=== PATIENT | female | born 1965 | race Hispanic/Latino ===

== ENCOUNTER 2021-06-11 10:24 | Emergency (ER) | payer OTHER, SELFPAY ==
--- OUTSIDE RECORDS SUMMARY | 2021-06-11 10:26 | XMS REPORT | Continuity of Care Document ---
:1965 Author Organization [facility] t Address [address] [place] [address] [address]. [address] [place] [address] Care Team Providers Name Role Phone Pob1, [facility] Attending Clinician Unavailable Problems This patient has no known problems. Allergies, Adverse Reactions, Alerts This patient has no known allergies or adverse reactions. Medications This patient has no known medications. Procedures This patient has no known procedures. Encounters Start End Encounter Admission Attending Care Care Encounter Source Date/Time Date/Time Type Type Clinicians Facility Department ID 2020-03-07 2020-03-07 Urgent Pob1, Acute [facility] [id number] 10:36:53 11:35:13 [facility] [id number] Maxie [id number] Ta [id number] nal 0[address] One Results This patient has no known results.
[2021-06-11 12:43] LABS: Absolute Lymphocytes (CBC) 0.7 K/uL (0.7-4.9); Basophils % 0.4 % (0-1.3); Lymphocytes % 12.8 % (15.3-44.8); MPV 8.9 fL (7.6-11.3); RBC Red Blood Cell Count 4.84 M/uL (3.86-4.86)
--- NOTE | 2021-06-11 12:53 | RAD REPORT ---
EXAM DESCRIPTION: Heriberto Single View06/11/2021 12:47 pm CLINICAL HISTORY: Cough COMPARISON: none FINDINGS: The lungs appear clear of acute infiltrate. The heart is normal size IMPRESSION: No acute abnormalities displayed
[2021-06-11 13:01] LABS: ALT/SGPT 72 U/L (12-78); AST/SGOT 49 U/L (15-37); Albumin 3.3 g/dL (3.4-5.0); Alkaline Phosphatase 103 U/L (45-117); BUN Blood Urea Nitrogen 8 mg/dL (7-18); Bicarbonate 27 mmol/L (21-32); Bilirubin Direct 0.1 mg/dL (0-0.2); Bilirubin Total 0.5 mg/dL (0.2-1.0); Ferritin 519.9 ng/mL (8-388); Glucose Level 87 mg/dL (74-106); Lipase 190 U/L (73-393); Potassium 3.2 mmol/L (3.5-5.1); Protein, Total 6.7 g/dL (6.4-8.2); Sodium Level 137 mmol/L (136-145); Troponin (Emerg Dept Use Only) < 0.02 ng/mL (0.0-0.045)
[2021-06-11 13:07] LABS: Protime INR 1.08
--- NOTE | 2021-06-11 13:59 | RAD REPORT ---
EXAM DESCRIPTION: CT - Chest For Pe Angio - 06/11/2021 1:40 pm CLINICAL HISTORY: Chest pain COMPARISON: None. TECHNIQUE: Dynamically enhanced axial 3 mm thick images of the chest were obtained during administra tion of <100> mL Isovue 370 IV contrast. Coronal and oblique reconstruction images were generated and reviewed. Exam utilizes a protocol for optimal evaluation of pulmonary arterial tree. Maximum intensity projections 3D imaging was utilized All CT scans are performed using dose optimization technique as appropriate and may include automated exposure control or mA/KV adjustment according to patient size. FINDINGS: A pulmonary embolus is not seen. A thoracic aortic aneurysm is not noted. A pleural effusion is not seen. A pericardial effusion is not seen. Mild bilateral ground-glass opacities within the lungs. Fatty liver IMPRESSION: Negative for a pulmonary embolism. Mild bilateral ground-glass opacities within the lungs indicative of a mild alveolitis
[2021-06-11 14:19] LABS: Urine Blood Negative (Negative); Urine Glucose Negative (Negative); Urine Protein Negative (Negative)
[2021-06-11 14:46] LABS: Urine Bacteria 20-50 /HPF (<20); Urine RBC NONE SEEN /HPF (NONE SEEN)
[2021-06-11] MEDS ORDERED: dexAMETHasone 10 MG/ML VIAL ONE (15:16)
--- NOTE | 2021-06-11 15:19 | EDPHYS ---
Physician Documentation [facility] Name: Samia Jarquin Age: 56 yrs Sex: Female : 1965 Arrival Date: 06/11/2021 Time: 10:27 Bed 5 Private MD: ED Physician Josh Horan HPI: 06/11 13:09 This 56 yrs old Female presents to ER via Ambulatory with complaints of kdr COVID+, Chest Pain. 13:10 The patient states that she was diagnosed with Covid last Thursday. She had been ill kdr for about 3 to 4 days. Since then she has been progressively feeling worse. She has no focal signs or symptoms but is otherwise in her usual state of health. She has had subjective fever, chest pain and general malaise. She is not taking any Tylenol or Motrin for the pain.. Severity of symptoms: At their worst the symptoms were moderate just prior to arrival, in the emergency department the symptoms are unchanged. The patient has not experienced similar symptoms in the past. The patient has been recently seen by a physician: Patient was diagnosed with Covid at urgent care last Thursday.. 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 - Social history:: Smoking status: Patient denies any tobacco usage or history of. ROS: 13:10 Constitutional: Negative for objective fever, chills, and weight loss, the patient has kdr had subjective fever. Eyes: Negative for injury, pain, redness, and discharge, ENT: Negative for injury, pain, and discharge, Neck: Negative for injury, pain, and swelling, Cardiovascular: Negative for chest pain, palpitations, and edema, Abdomen/GI: Negative for abdominal pain, nausea, vomiting, diarrhea, and constipation, Back: Negative for injury and pain, : Negative for injury, bleeding, discharge, and swelling, MS/Extremity: Negative for injury and deformity, Skin: Negative for injury, rash, and discoloration, Neuro: Negative for headache, weakness, numbness, tingling, and seizure activity. Psych: Negative for depression, anxiety, suicide ideation, homicidal ideation, and hallucinations, Allergy/Immunology: Negative for hives, rash, and allergies, Endocrine: Negative for neck swelling, polydipsia, polyuria, polyphagia, and marked weight changes, Hematologic/Lymphatic: Negative for swollen nodes, abnormal bleeding, and unusual bruising. 13:10 Respiratory: Positive for cough, with no reported sputum, dyspnea on exertion, shortness of breath, on exertion. Exam: 13:10 Constitutional: This is a well developed, well nourished patient who is awake, alert, kdr and in no acute distress. Head/Face: Normocephalic, atraumatic. Eyes: Pupils equal round and reactive to light, extra-ocular motions intact. Lids and lashes normal. Conjunctiva and sclera are non-icteric and not injected. Cornea within normal limits. Periorbital areas with no swelling, redness, or edema. Neck: Trachea midline, no thyromegaly or masses palpated, and no cervical lymphadenopathy. Supple, full range of motion without nuchal rigidity, or vertebral point tenderness. No Meningismus. Chest/axilla: Normal chest wall appearance and motion. Nontender with no deformity. No lesions are appreciated. Cardiovascular: Regular rate and rhythm with a normal S1 and S2. No gallops, murmurs, or rubs. Normal PMI, no JVD. No pulse deficits. Respiratory: Lungs have equal breath sounds bilaterally, clear to auscultation and percussion. No rales, rhonchi or wheezes noted. No increased work of breathing, no retractions or nasal flaring. Abdomen/GI: Soft, non-tender, with normal bowel sounds. No distension or tympany. No guarding or rebound. No evidence of tenderness throughout. Back: No spinal tenderness. No costovertebral tenderness. Full range of motion. Skin: Warm, dry with normal turgor. Normal color with no rashes, no lesions, and no evidence of cellulitis. MS/ Extremity: Pulses equal, no cyanosis. Neurovascular intact. Full, normal range of motion. Neuro: Awake and alert, GCS 15, oriented to person, place, time, and situation. Cranial nerves II-XII grossly intact. Motor strength 5/5 in all extremities. Sensory grossly intact. Cerebellar exam normal. Normal gait. Psych: Awake, alert, with orientation to person, place and time. Behavior, mood, and affect are within normal limits. Vital Signs: 10:45 BP 123 / 90; Pulse 108; Resp 24; Temp 98.1(TE); Pulse Ox 98% ; Weight 108.86 kg; Height ss 5 ft. 5 in. (165.10 cm); Pain 8/10; 12:28 BP 123 / 79; Pulse 101; Resp 17; Pulse Ox 99% on R/A; hb 13:17 BP 110 / 75; Pulse 105; Resp 19; Pulse Ox 95% ; jl7 14:14 BP 112 / 72; Pulse 102; Resp 16; Pulse Ox 100% on R/A; dh3 15:20 BP 103 / 77; Pulse 107; Resp 15; Pulse Ox 98% ; jl7 10:45 Body Mass Index 39.94 (108.86 kg, 165.10 cm) ss MDM: 13:10 Data reviewed: vital signs, nurses notes, lab test result(s), radiologic studies. kdr Counseling: I had a detailed discussion with the patient and/or guardian regarding: the historical points, exam findings, and any diagnostic results supporting the discharge/admit diagnosis, lab results, radiology results, the need for outpatient follow up. 15:18 Patient medically screened. kdr 06/11 12:13 Order name: Flu kdr 06/11 12:13 Order name: Strep kdr 06/11 12:13 Order name: BMP kdr 06/11 12:13 Order name: Blood Culture Adult (2) kdr 06/11 12:13 Order name: C-Reactive Protein; Complete Time: 13:21 kdr 06/11 12:13 Order name: CBC with Diff; Complete Time: 13:21 kdr 06/11 12:13 Order name: D-Dimer; Complete Time: 13:21 kdr 06/11 12:13 Order name: Ferritin; Complete Time: 13:21 kdr 06/11 12:13 Order name: LFT's; Complete Time: 13:21 kdr 06/11 12:13 Order name: Lactate; Complete Time: 13:21 kdr 06/11 12:13 Order name: Lipase; Complete Time: 13:21 kdr 06/11 12:13 Order name: PT-INR; Complete Time: 13:21 kdr 06/11 12:13 Order name: Procalcitonin; Complete Time: 14:05 kdr 06/11 12:13 Order name: Ptt, Activated; Complete Time: 13:21 [facility] 06/11 12:13 Order name: Droplet/Contact Precautions; Complete Time: 12: [facility] 06/11 12:13 Order name: Labs collected and sent; Complete Time: 12: [facility] 06/11 12:13 Order name: Troponin (emerg Dept Use Only); Complete Time: 13:21 [facility] 06/11 12:13 Order name: Urine Microscopic Only [facility] 06/11 12:13 Order name: CXR XRAY; Complete Time: 13:21 [facility] 06/11 12:13 Order name: EKG; Complete Time: 12:14 [facility] 06/11 12:13 Order name: Influenza Screen (A ; Complete Time: 13:21 [facility] 06/11 12:13 Order name: Group A Streptococcus Rapid Sc; Complete Time: 13:21 [facility] 06/11 12:13 Order name: Basic Metabolic Panel; Complete Time: 13:21 [facility] 06/11 12:13 Order name: Blood Culture [facility] 06/11 13:02 Order name: Throat Culture [facility] 06/11 13:23 Order name: CT Chest For PE Angio; Complete Time: 14:05 [facility] 06/11 14:19 Order name: Urine Dipstick-Ancillary; Complete Time: 14: [facility] 06/11 14:48 Order name: Urine Culture [facility] 06/11 12:13 Order name: O2 Per Protocol; Complete Time: 12: [facility] 06/11 12:13 Order name: Cardiac monitoring; Complete Time: 12:28 [facility] 06/11 12:13 Order name: EKG - Nurse/Tech; Complete Time: 12: [facility] 06/11 12:13 Order name: IV Start; Complete Time: 12: [facility] 06/11 12:13 Order name: O2 Sat Monitoring; Complete Time: 12:28 [facility] 06/11 12:13 Order name: Urine Dipstick-Ancillary (obtain specimen); Complete Time: 14:19 [facility] Administered Medications: 14:58 Drug: Decadron - Dexamethasone 10 mg Route: IVP; Site: right antecubital; 7 15:40 Follow up: Response: No adverse reaction jl7 15:40 Drug: Ivermectin 12 mg Route: PO; jl7 15:41 Follow up: Response: Medication administered at discharge. jl7 Disposition Summary: 06/11/21 15:18 Discharge Ordered Location: Home kdr Problem: an ongoing problem kdr Symptoms: have improved kdr Condition: Stable kdr Diagnosis - SARS-associated coronavirus as the cause of diseases classified elsewhere kdr - Shortness of breath kdr - Chest pain, unspecified kdr Followup: kdr - With: Private Physician - When: 2 - 3 days - Reason: If symptoms return, Further diagnostic work-up, Recheck today's complaints, Continuance of care, Re-evaluation by your physician Discharge Instructions: - Discharge Summary Sheet kdr - Shortness of Breath, Adult, [id number] kdr - Nonspecific Chest Pain, Adult, [id number] kdr - COVID-19 kdr Forms: - Medication Reconciliation Form kdr - Thank You Letter kdr Signatures: Dispatcher [employer] Josh Escobedo MD MD kdr Smirch, Shelby, RN RN ss Grey Collins RN RN jl7
--- NOTE | 2021-06-11 15:19 | ER ---
Nurse's Notes [facility] Name: Samia Jarquin Age: 56 yrs Sex: Female : 1965 Arrival Date: 06/11/2021 Time: 10:27 Bed 5 Private MD: Diagnosis: SARS-associated coronavirus as the cause of diseases classified elsewhere;Shortness of breath;Chest pain, unspecified Presentation: 06/11 10:45 Chief complaint: Patient states: Tested positive for COVID 3 days ago. Pt reports that ss this morning she woke up with chest pressure, dizziness and heat waves. Coronavirus screen: Client presents with at least one sign or symptom that may indicate coronavirus-19. Standard/surgical mask placed on the client. Provider contacted for isolation considerations. Ebola Screen: Patient denies exposure to infectious person. Patient denies travel to an Ebola-affected area in the 21 days before illness onset. Initial Sepsis Screen: Does the patient meet any 2 criteria? No. Patient's initial sepsis screen is negative. Does the patient have a suspected source of infection? No. Patient's initial sepsis screen is negative. Risk Assessment: Do you want to hurt yourself or someone else? Patient reports no desire to harm self or others. Onset of symptoms was June 11, 2021. 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 - Social history:: Smoking status: Patient denies any tobacco usage or history of. Screenin:33 Abuse screen: Denies threats or abuse. Denies injuries from another. Nutritional jl7 screening: No deficits noted. Tuberculosis screening: No symptoms or risk factors identified. 11:56 Fall Risk hb Assessment: 11:33 General: Appears in no apparent distress. uncomfortable, Behavior is cooperative, jl7 anxious. Pain: Complains of pain in mid-sternal area Pain does not radiate. Pain currently is 8 out of 10 on a pain scale. Quality of pain is described as pressure, Pain began This morning Is continuous. Neuro: Level of Consciousness is awake, alert, obeys commands, Oriented to person, place, time, situation. Cardiovascular: Patient's skin is warm and dry. Rhythm is regular. Respiratory: Reports shortness of breath Airway is patent Respiratory effort is even, unlabored, Respiratory pattern is regular, symmetrical. GI: Abdomen is non-distended, Reports diarrhea. Derm: Skin is pink, warm \T\ dry. 12:28 Reassessment: Patient appears in no apparent distress at this time. Patient and/or hb family updated on plan of care and expected duration. Pain level reassessed. Patient is alert, oriented x 3, equal unlabored respirations, skin warm/dry/pink. 13:47 Reassessment: Patient appears in no apparent distress at this time. Patient and/or hb family updated on plan of care and expected duration. Pain level reassessed. Patient is alert, oriented x 3, equal unlabored respirations, skin warm/dry/pink. 14:30 Reassessment: Patient appears in no apparent distress at this time. No changes from 7 previously documented assessment. Patient and/or family updated on plan of care and expected duration. Pain level reassessed. Patient is alert, oriented x 3, equal unlabored respirations, skin warm/dry/pink. 15:20 Reassessment: Pt will be discharged once medication is received from pharmacy. 7 Vital Signs: 10:45 BP 123 / 90; Pulse 108; Resp 24; Temp 98.1(TE); Pulse Ox 98% ; Weight 108.86 kg; Height ss 5 ft. 5 in. (165.10 cm); Pain 8/10; 12:28 BP 123 / 79; Pulse 101; Resp 17; Pulse Ox 99% on R/A; hb 13:17 BP 110 / 75; Pulse 105; Resp 19; Pulse Ox 95% ; jl7 14:14 BP 112 / 72; Pulse 102; Resp 16; Pulse Ox 100% on R/A; dh3 15:20 BP 103 / 77; Pulse 107; Resp 15; Pulse Ox 98% ; jl7 10:45 Body Mass Index 39.94 (108.86 kg, 165.10 cm) ED Course: 10:27 Patient arrived in ED. mr 10:27 Josh Horan MD is Attending Physician. kdr 10:48 Triage completed. ss 10:48 Arm band placed on right wrist. ss 10:53 Grey Collins, RN is Primary Nurse. jl7 11:33 Patient has correct armband on for positive identification. Placed in gown. Bed in low jl7 position. Call light in reach. Side rails up X 1. athletic monitor on. Pulse ox on. NIBP on. 11:33 EKG done, by ED staff, reviewed by Josh Horan MD. Patient maintains SpO2 saturation jl7 greater than 95% on room air. 12:25 Initial lab(s) drawn, by nd, sent to lab. First set of blood cultures drawn by me. 3 Inserted saline lock: 20 gauge in right antecubital area, using aseptic technique. Blood collected. 12:28 Second set of blood cultures drawn by nd. dh3 12:47 CXR XRAY In Process Unspecified. EDMS 13:40 CT Chest For PE Angio In Process Unspecified. EDMS 14:19 Urine collected: clean catch specimen, clear. 3 15:41 No provider procedures requiring assistance completed. IV discontinued, intact, jl7 bleeding controlled, No redness/swelling at site. Pressure dressing applied. Administered Medications: 14:58 Drug: Decadron - Dexamethasone 10 mg Route: IVP; Site: right antecubital; jl7 15:40 Follow up: Response: No adverse reaction jl7 15:40 Drug: Ivermectin 12 mg Route: PO; jl7 15:41 Follow up: Response: Medication administered at discharge. jl7 Outcome: 15:18 Discharge ordered by . kdr 15:41 Discharged to home ambulatory. jl7 15:41 Condition: stable 15:41 Discharge instructions given to patient, Instructed on discharge instructions, follow up and referral plans. medication usage, Demonstrated understanding of instructions, follow-up care, medications, Prescriptions given X 1. 15:41 Patient left the ED. jl7 Signatures: Dispatcher [employer] EDMS Josh Horan MD MD kdr Rivera, Genie ZepedaVerónica, RN Mary Herrera, CONRAD MARTINES Grey Collins, CONRAD MARTINES jl7 Laura Machado formerly [facility]
[2021-06-11] MEDS ORDERED: IVERMECTIN 3 MG TABLET PO ONE (16:00)
[2021-06-11 16:08] VITALS: TEMP 98.1
[2021-06-11 16:18] VITALS: BP 103/77; O2SAT 98
--- NOTE | 2021-06-11 16:50 | P.CNS ---
Date of Consult: 06/11/21 Reason for Consult: ER Evaluation Requesting Physician: Josh Horan Primary Care Provider: none Chief Complaint: SOB History of Present Illness: 56-year-old female without any major medical problems presented to the emergency room with shortness of breath. Patient was tested positive recently for COVID-19. On Thursday she had fever. She had some mild nausea, vomiting. She reported a boyfriend had similar symptoms and tested positive for Covid. She came to the ER for further evaluation. In the ER patient was evaluated. CT scan revealed no pulmonary embolism. Bilateral changes noted on CT scan indicative of Covid infection. Ferritin 519, CRP thirty-six. D-dimer 647. CBC unremarkable. BMP unremarkable. I was asked to evaluate patient in the ER for possible admission or discharge to home. Home medications list reviewed: No - Past Medical/Surgical History Past Medical History: Patient denies medical history -: Partial hysterectomy Psychosocial/ Personal History: Patient has a significant other. - Family History Father Family History: Reviewed- Non-Contributory - Social History Smoking Status: Never smoker Alcohol use: No CD- Drugs: No Caffeine use: Yes Place of Residence: Home Physical Examination Temp Pulse Resp BP Pulse Ox 98.1 F 107 H 15 103/77 06/11/21 10:45 06/11/21 15:20 06/11/21 15:20 06/11/21 15:20 Laboratory Data (last 24 hrs) 06/11/21 12:25: PT 12.4, INR 1.08, APTT 27.5 06/11/21 12:25: WBC 5.20, Hgb 14.5, Hct 43.0, Plt Count 127 L 06/11/21 12:25: Sodium 137, Potassium 3.2 L, BUN 8, Creatinine 0.76, Glucose 87, Total Bilirubin 0.5, AST 49 H, ALT 72, Alkaline Phosphatase 103, Lipase 190 Physician Review Additional Text: CT Scan: FINDINGS: A pulmonary embolus is not seen. A thoracic aortic aneurysm is not noted. A pleural effusion is not seen. A pericardial effusion is not seen. Mild bilateral ground-glass opacities within the lungs. Fatty liver IMPRESSION: Negative for a pulmonary embolism. Mild bilateral ground-glass opacities within the lungs indicative of a mild alveolitis Physical Exam: GENERAL: The patient is a well-developed, well-nourished, in no apparent distress. Alert and oriented x3. VITAL SIGNS: Reviewed HEENT: Head is normocephalic and atraumatic. Extraocular muscles are intact. Pupils are equal, round, and reactive to light and accommodation. Nares appeared normal. Mouth is well hydrated and without lesions. Mucous membranes are moist. NECK: Supple. No carotid bruits. No lymphadenopathy or thyromegaly. LUNGS: Clear to auscultation. No crackles or wheezes are heard. No desaturations noted. HEART: Regular rate and rhythm, no appreciable gallops, rubs, murmurs or extra heart sounds ABDOMEN: Soft, nontender, and nondistended. Positive bowel sounds. No hepatosplenomegaly was noted. EXTREMITIES: Without any cyanosis, clubbing, rash, lesions or peripheral edema. NEUROLOGIC: The patient is oriented to person, place and time. Strength and sensation are grossly intact. Face is symmetric. SKIN: Normal color, turgor and temperature. No ulcerations or rashes noted. Impression: Dyspnea secondary to COVID-19 bilateral pneumonia Plan: Patient was evaluated in the emergency room. Room air saturations within normal range even with exertion. Patient was able to ambulate without difficulty. No significant distress noted. Patient desires to go home. Patient will be discharged home. Patient given IV Decadron and ivermectin in the emergency room. Recommend to continue prednisone 20 mg 1 pill twice daily for 7 days and 1 pill once daily for 7 days. We'll also recommend to continue aspirin 81 mg daily, zinc 220 mg daily, thiamine 100 mg daily, vitamin C 500 mg three times a day, and vitamin D 2000 units daily. Recommend to monitor her oxygen saturations with pulse oximeter. Recommend to maintain oxygen above 93%. If she has continued increasing shortness of breath or significant desaturations she is to return to the hospital. She is aware of this. Patient plans to follow-up with pulmonology as an outpatient to monitor her symptoms closely. Education on COVID-19 provided including facemask use, handwashing, isolation, proning and incentive spirometer. Plan discussed with ER physician who agrees with plan of care. Time Spent Managing Pts care (In Minutes): 55
--- NOTE | 2021-06-12 10:43 | EKG ---
Test Date: 2021-06-11 Test Time: 11:29:07 Events Assistant: PETAR MEASUREMENT RESULTS: Intervals: Rate: 99 AL: 126 QRSD: 76 QT: 332 QTc: 426 [place]: P: 36 AL: 126 QRS: -9 T: 13 INTERPRETIVE STATEMENTS: Normal sinus rhythm Normal ECG No previous ECG available for comparison Electronically Signed On 06-12-21 10:41:53 CDT by Osvaldo Gerard
== END 2021-06-11 15:41 | disposition home or self-care (01) ==
LOC: ER 10:24
DX: U07.1 COVID-19 (principal); J12.82 Pneumonia due to coronavirus disease 2019; R06.02 Shortness of breath
CPT/HCPCS: 36415; 71045; 71275; 80048; 80076; 81003; 81015; 82728; 83605; 83690; 84145; 84484; 85025; 85379; 85610; 85730; 86140; 87040; 87070; 87081; 87086; 87088; 87804; 93005; 96374; 99285; J1100; Q9967

== ENCOUNTER 2021-06-14 03:08 | Inpatient (IN) | payer SELFPAY ==
--- OUTSIDE RECORDS SUMMARY | 2021-06-14 03:11 | XMS REPORT | Continuity of Care Document ---
:1965 Author Organization [facility] t Address [address] [place] [address] [address]. [address] [place] [address] Care Team Providers Name Role Phone Pob1, [facility] Attending Clinician Unavailable Problems This patient has no known problems. Allergies, Adverse Reactions, Alerts This patient has no known allergies or adverse reactions. Medications This patient has no known medications. Procedures This patient has no known procedures. Encounters Start End Encounter Admission Attending Care Care Encounter Source Date/Time Date/Time Type Type Clinicians Facility Department ID 2020-03-07 2020-03-07 Urgent Pob1, Acute [facility] [id number] 10:36:53 11:35:13 [facility] [id number] [place] [id number] Ta [id number] nal 044 [address] One Results This patient has no known results.
--- NOTE | 2021-06-14 03:51 | ER ---
Nurse's Notes [facility] Name: Samia Jarquin Age: 56 yrs Sex: Female : 1965 Arrival Date: 06/14/2021 Time: 03:11 Bed 25 Private MD: Diagnosis: Acute dyspnea, Hypoxia. Positive Covid 19;Acute dyspnea, Hypoxia. Positive Covid 19. Covid pneumonia Presentation: 06/14 03:27 Chief complaint: Patient states: she was diagnosed with COVID Thursday and started on bb steroids but tonight she started having difficulty breathing and coughing. Coronavirus screen: chills, cough unrelated to allergies, difficulty breathing, Client reports previous positive COVID test result. Ebola Screen: No symptoms or risks identified at this time. Initial Sepsis Screen: Does the patient meet any 2 criteria? RR > 20 per min. HR > 90 bpm. Yes Does the patient have a suspected source of infection? Yes: Productive cough/pneumonia. Risk Assessment: Do you want to hurt yourself or someone else? Patient reports no desire to harm self or others. Onset of symptoms was June 14, 2021. 03:27 Method Of Arrival: Ambulatory bb 03:27 Acuity: HOMAR 3 bb SHIRRER: 03:30 LMP N/A - Hysterectomy bb Historical: - Allergies: 03:30 No Known Allergies; bb - Home Meds: 03:30 None [Active]; bb - PMHx: 03:30 None; bb - PSHx: 03:30 partial hysterectomy; bb - Immunization history:: Adult Immunizations up to date, Client reports having NOT received the Covid vaccine. - Social history:: Smoking status: Patient denies any tobacco usage or history of. Screenin:30 Abuse screen: Denies threats or abuse. Nutritional screening: No deficits noted. jb4 Tuberculosis screening: No symptoms or risk factors identified. Fall Risk None identified. Assessment: 03:30 General: Appears in no apparent distress. uncomfortable, Behavior is calm, cooperative, jb4 appropriate for age. Pain: Denies pain. Neuro: Level of Consciousness is awake, alert, obeys commands, Oriented to person, place, time, situation. Cardiovascular: Patient's skin is warm and dry. Respiratory: Airway is patent Respiratory effort is even, labored, Respiratory pattern is regular, tachypnea Breath sounds are clear bilaterally. GI: No signs and/or symptoms were reported involving the gastrointestinal system. : EENT: No signs and/or symptoms were reported regarding the EENT system. Derm: Skin is intact, Skin is pink, warm \T\ dry. Musculoskeletal: Circulation, motion, and sensation intact. Range of motion: intact in all extremities. 03:55 Reassessment: PT DeSat to 88% while on 2L NC upon exertion. Provider notified. jb4 04:47 Reassessment: Patient appears in no apparent distress at this time. Patient and/or jb4 family updated on plan of care and expected duration. Pain level reassessed. Pt is resting in bed with eyes closed, respirations are even, labored, and tachypneic. No s/s of pain or distress noted. 07:00 Reassessment: RECD REPORT FROM CHAZ MARTINES. 56YO HF P/W +COVID AND HYPOXIA. ADMIT IN bp PROCESS. 07:15 Cardiovascular: Rhythm is sinus rhythm. Respiratory: Airway is patent Respiratory bp effort is even, labored, Respiratory pattern is regular, Breath sounds are clear bilaterally. Vital Signs: 03:27 BP 132 / 79; Pulse 108; Resp 28 S; Temp 100.4(O); Pulse Ox 90% on R/A; Weight 111.13 kg bb (R); Height 5 ft. 5 in. (165.10 cm) (R); Pain 0/10; 04:15 BP 119 / 70; Pulse 97; Resp 24; Pulse Ox 90% on 2 lpm NC; jb4 07:00 BP 138 / 82; Pulse 83; Resp 25; Pulse Ox 91% on 2 lpm NC; bp 03:27 Body Mass Index 40.77 (111.13 kg, 165.10 cm) bb ED Course: 03:11 Patient arrived in ED. es 03:20 Ruslan Restrepo, CONRAD is Primary Nurse. jb4 03:27 Tyson Whitley MD is Attending Physician. pkl 03:30 Triage completed. bb 03:30 Arm band placed on Patient placed in an exam room, on a stretcher, on oxygen, on pulse bb oximetry. 03:30 Patient has correct armband on for positive identification. Bed in low position. Call jb4 light in reach. Side rails up X 1. Pulse ox on. NIBP on. 03:50 Sundar Starks DO is Hospitalizing Provider. pkl 03:52 XRAY Chest (1 view) In Process Unspecified. EDMS 04:00 Initial lab(s) drawn, by me, sent to lab. Inserted saline lock: 20 gauge in right jb4 antecubital area, using aseptic technique. Blood collected. 05:17 No provider procedures requiring assistance completed. Patient admitted, IV remains in jb4 place. Administered Medications: 04:07 Drug: SOLU-Medrol (methylPrednisoLONE) 125 mg Route: IVP; Site: right antecubital; jb 06:24 Follow up: Response: No adverse reaction jb4 Outcome: 03:51 Decision to Hospitalize by Provider. pkl 05:17 Admitted to ER Hold. Please see [facility] for further documentation. jb 05:17 Condition: stable 05:17 Discharge instructions given to patient, Instructed on the need for admit, Demonstrated understanding of instructions. 06/15 09:47 Patient left the ED. bp Signatures: Dispatcher [employer] EDLA Tyson Whitley MD MD pkl Ambika Blake Brenda, RN RN bb Ruslan Restrepo, CONRAD RN jb4 Hans Childs, CONRAD RN bp
--- NOTE | 2021-06-14 03:52 | EDPHYS ---
Physician Documentation [facility] Name: Samia Jarquin Age: 56 yrs Sex: Female : 1965 Arrival Date: 06/14/2021 Time: 03:11 Bed 25 Private MD: ED Physician Tyson Whitley HPI: 06/14 03:43 This 56 yrs old Female presents to ER via Ambulatory with complaints of pkl Breathing Difficulty. 03:43 The patient has shortness of breath at rest. Onset: The symptoms/episode began/occurred pkl today. Patient was seen here 5 days ago and tested positive for Covid 19. Patient given steroids but felt worse and now having shortness of breath. 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 - Social history:: Smoking status: Patient denies any tobacco usage or history of. ROS: 03:43 Eyes: Negative for injury, pain, redness, and discharge, ENT: Negative for injury, pkl pain, and discharge, Neck: Negative for injury, pain, and swelling, Cardiovascular: Negative for chest pain, palpitations, and edema. 03:43 Respiratory: Positive for cough, shortness of breath, at rest. 03:43 Abdomen/GI: Negative for abdominal pain, nausea, vomiting, and diarrhea. 03:43 Back: Negative for acute changes. 03:43 : Negative for urinary symptoms. 03:43 MS/extremity: Negative for acute changes. 03:43 Skin: Negative for rash. 03:43 Neuro: Negative for altered mental status, loss of consciousness. Exam: 03:43 Head/Face: Normocephalic, atraumatic. Eyes: Pupils equal round and reactive to light, pkl extra-ocular motions intact. Lids and lashes normal. Conjunctiva and sclera are non-icteric and not injected. Cornea within normal limits. Periorbital areas with no swelling, redness, or edema. ENT: Nares patent. No nasal discharge, no septal abnormalities noted. Tympanic membranes are normal and external auditory canals are clear. Oropharynx with no redness, swelling, or masses, exudates, or evidence of obstruction, uvula midline. Mucous membranes moist. Neck: Trachea midline, no thyromegaly or masses palpated, and no cervical lymphadenopathy. Supple, full range of motion without nuchal rigidity, or vertebral point tenderness. No Meningismus. Chest/axilla: Normal chest wall appearance and motion. Nontender with no deformity. No lesions are appreciated. Cardiovascular: Regular rate and rhythm with a normal S1 and S2. No gallops, murmurs, or rubs. Normal PMI, no JVD. No pulse deficits. 03:43 Respiratory: mild respiratory distress is noted, Respirations: labored breathing, that is mild, Breath sounds: rales, that are mild, are scattered. 03:43 Abdomen/GI: Exam negative for acute changes. 03:43 Back: Exam negative for acute changes. 03:43 : Exam negative for acute changes. 03:43 Musculoskeletal/extremity: Exam is negative for acute changes. 03:43 Skin: Exam negative for rash. 03:43 Neuro: Orientation: is normal, Mentation: is normal, Cranial nerves: grossly normal, Motor: is normal. Vital Signs: 03:27 BP 132 / 79; Pulse 108; Resp 28 S; Temp 100.4(O); Pulse Ox 90% on R/A; Weight 111.13 kg bb (R); Height 5 ft. 5 in. (165.10 cm) (R); Pain 0/10; 04:15 BP 119 / 70; Pulse 97; Resp 24; Pulse Ox 90% on 2 lpm NC; jb4 07:00 BP 138 / 82; Pulse 83; Resp 25; Pulse Ox 91% on 2 lpm NC; bp 03:27 Body Mass Index 40.77 (111.13 kg, 165.10 cm) bb MDM: 03:27 Patient medically screened. pkl 03:43 Data reviewed: vital signs, nurses notes, lab test result(s), EKG, radiologic studies, pkl plain films. ED course: Talked to Mark LAUREN ) Admit to Dr. Starks. 06/14 03:40 Order name: CBC with Diff la1 06/14 03:40 Order name: LFT's la1 06/14 03:40 Order name: Magnesium la1 06/14 03:40 Order name: NT PRO-BNP nm06/14 03:40 Order name: PT-INR nm06/14 03:40 Order name: Troponin (emerg Dept Use Only) nm06/14 03:40 Order name: CMP nm06/14 03:40 Order name: CRP nm06/14 03:40 Order name: Ferritin nm06/14 03:40 Order name: DD nm06/14 03:40 Order name: CBC with Automated Diff EDMS 06/14 04:00 Order name: Procalcitonin EDND 06/15 05:08 Order name: CBC with Automated Diff EDMS 06/15 05:32 Order name: Comprehensive Metabolic Panel EDND 06/14 03:40 Order name: XRAY Chest (1 view) nm06/14 03:40 Order name: EKG; Complete Time: 03:41 nm06/14 03:40 Order name: Cardiac monitoring; Complete Time: 04:05 nm06/14 03:40 Order name: EKG - Nurse/Tech; Complete Time: 04:05 nm06/14 03:40 Order name: IV Saline Lock; Complete Time: 04:06 nm06/14 03:40 Order name: Labs collected and sent; Complete Time: 04:06 nm06/14 03:40 Order name: O2 Per Protocol; Complete Time: 04:06 nm06/14 03:40 Order name: O2 Sat Monitoring; Complete Time: 04:06 nm06/15 05:32 Order name: Lipid Profile EDND 06/15 05:32 Order name: C-Reactive Protein EDND 06/15 05:32 Order name: T4 Free EDND 06/15 05:32 Order name: Magnesium EDND 06/15 05:32 Order name: Thyroid Stimulating Hormone EDND 06/15 05:32 Order name: Ferritin EDND 06/15 06:55 Order name: Hemoglobin A1c EDND Administered Medications: 04:07 Drug: SOLU-Medrol (methylPrednisoLONE) 125 mg Route: IVP; Site: right antecubital; jb4 06:24 Follow up: Response: No adverse reaction jb4 Disposition Summary: 06/14/21 03:51 Hospitalization Ordered Hospitalization Status: Inpatient Admission pkl Provider: Sundar Starks pkl Condition: Stable pkl Problem: new pkl Symptoms: are unchanged pkl Bed/Room Type: Standard pkl Location: Intensive Care Unit(06/15/21 07:26) eb Room Assignment: 8-(06/15/21 07:26) eb Diagnosis - Acute dyspnea, Hypoxia. Positive Covid 19 pkl - Acute dyspnea, Hypoxia. Positive Covid 19. Covid pneumonia pkl Forms: - Medication Reconciliation Form pkl - SBAR form pkl Signatures: Dispatcher [employer] EDTyson Mayorga MD MD pkl Kalyn Moses, RN RN Mark Da Silva, PHOTO MASK PROCESSOR-C PHOTO MASK PROCESSOR-Cla1 Ruslan eRstrepo RN RN jb4 Brandie Hunt Bridget RN RN bs2 Corrections: (The following items were deleted from the chart) 07:40 03:51 Telemetry/MedSurg (Inpatient) pkl bs2 07:40 03:51 pkl bs2 06/15 07:26 06/14 07:40 [facility] ER HOLD bs2 eb 06/15 07:06/14 07:40 ERHOLD- bs2 eb
[2021-06-14] MEDS ORDERED: METHYLPREDNISOLONE 125 MG INJ ONE ×2 (04:07→17:03)
--- NOTE | 2021-06-14 04:15 | P.HP ---
Certification for Inpatient Patient admitted to: Inpatient With expected LOS: >2 Midnights Patient will require the following post-hospital care: None Practitioner: I am a practitioner with admitting privileges, knowledge of patient current condition, hospital course, and medical plan of care. Services: Services provided to patient in accordance with Admission requirements found in Title 42 Section 412.3 of the Code of Federal Regulations Patient History Date of Service: 06/14/21 Primary Care Provider: None Reason for admission: COVID-19 pneumonia History of Present Illness: 56-year-old otherwise healthy female presents emergency department for shortness of breath and cough. Patient reports testing positive for Covid on 06/08/2021 with progressive shortness of breath. Boyfriend also sick with Covid, currently hospitalized. Upon arrival to the emergency department patient saturating around 88% on room air with tachypnea, dyspnea. Patient was placed on nasal cannula and given IV steroids in the emergency department, ED provider wishes to admit for further evaluation and management. - Past Medical/Surgical History -: None -: Partial hysterectomy Psychosocial/ Personal History: Patient has a significant other. - Social History Smoking Status: Never smoker Alcohol use: No CD- Drugs: No Caffeine use: Yes Place of Residence: Home Review of Systems 10-point ROS is otherwise unremarkable General: Chills, Weakness, Malaise Respiratory: Cough, Shortness of Breath, SOB with Excertion Physical Examination - Physical Exam General: Alert, In no apparent distress, Oriented x3 HEENT: Atraumatic, PERRLA, Mucous membr. moist/pink Neck: Supple, 2+ carotid pulse no bruit, No LAD Respiratory: Normal air movement, Diminished, Other (Tachypnea) Cardiovascular: Regular rate/rhythm, Normal S1 S2 Capillary refill: <2 Seconds Gastrointestinal: Normal bowel sounds, No tenderness Musculoskeletal: No tenderness Integumentary: No rashes Neurological: Normal gait, Normal speech, Normal strength at 5/5 x4 extr, Normal tone, Normal affect Lymphatics: No axilla or inguinal lymphadenopathy Assessment and Plan - Plan Assessment: Acute hypoxic respiratory failure secondary to COVID-19 pneumonia Obesity Plan: Acute hypoxic respiratory failure secondary to COVID-19 pneumonia: Patient nonvaccinated, patient recently seen in the emergency department had CT PE protocol which was negative for pulmonary embolism, chest x-ray worse in comparison today. Currently tolerating 3 to 4 L per nasal cannula well saturating the low 90s with some mild tachypnea noted on exam. We will continue with IV steroids, oral supplements, supplemental oxygen as needed, daily room air saturations, room air saturations for home O2. Pulmonology consulted. If patient does well over the course of the next 24 hours may possibly be discharged home with home oxygen. Obesity: We will on awake counselor on lifestyle changes, risk factor for poor outcome with Covid DVT PPX: Lovenox Code status: Full Discharge Plan: Home Plan to discharge in: 48 Hours - Advance Directives Does patient have a Living Will: No Does patient have a Durable POA for Healthcare: No - Code Status/Comfort Care Code Status Assessed: Yes (Full code) Critical Care: No Time Spent Managing Pts Care (In Minutes): 55
[2021-06-14 04:20] LABS: Absolute Lymphocytes (CBC) 0.7 K/uL (0.7-4.9); Basophils % 0.2 % (0-1.3); Hematocrit 40.7 % (36.0-45.0); Lymphocytes % 8.3 % (15.3-44.8); MPV 8.5 fL (7.6-11.3); RBC Red Blood Cell Count 4.64 M/uL (3.86-4.86)
[2021-06-14 04:22] LABS: Protime INR 1.03
[2021-06-14] MEDS ORDERED: MELATONIN 5 MG TABLET PO PRN (05:07)
[2021-06-14] MEDS ORDERED: ONDANSETRON 4 MG/2 ML VIAL IV PRN (05:07)
[2021-06-14] MEDS ORDERED: ACETAMINOPHEN 500 MG TAB PO PRN (05:07)
--- NOTE | 2021-06-14 06:00 | P.PN ---
Subjective Date of Service: 06/14/21 Primary Care Provider: None Chief Complaint: COVID-19 pneumonia Subjective: Improving, Other (Failed outpatient treatment of COVID. No distress noted. on 2 L/min) Physical Examination - Vital Signs Temperature: 100.2 F - Studies Laboratory Data (last 24 hrs) 06/14/21 04:03: PT 11.8, INR 1.03 06/14/21 04:03: WBC 9.00 D, Hgb 14.2, Hct 40.7, Plt Count 153 D Assessment & Plan Discharge Plan: Home Plan to discharge in: 24 Hours Physician Review Additional Text: Physical exam: General: Alert, In no apparent distress, Oriented x3 HEENT: Atraumatic, PERRLA, Mucous membr. moist/pink Neck: Supple, 2+ carotid pulse no bruit, No LAD Respiratory: Normal air movement. No distress. currently on 2 l/m Cardiovascular: Regular rate/rhythm, Normal S1 S2 Capillary refill: <2 Seconds Gastrointestinal: Normal bowel sounds, No tenderness Musculoskeletal: No tenderness Integumentary: No rashes Neurological: Normal gait, Normal speech, Normal strength at 5/5 x4 extr, Normal tone, Normal affect Lymphatics: No axilla or inguinal lymphadenopathy Impression: Acute hypoxic respiratory failure secondary to COVID-19 pneumonia, unvaccinated, failed outpatient therapy Obesity, BMI 40 Plan: Acute hypoxic respiratory failure secondary to COVID-19 pneumonia, unvaccinated, failed outpatient therapy: Patient nonvaccinated, patient recently seen in the emergency department had CT PE protocol which was negative for pulmonary embolism, chest x-ray worse in comparison today. Currently on 2 l/min. No distress noted. Will continue with IV steroid, ivermectin, and supplementation. Encourage proning, incentive spirometer. Will need home oxygen. If stable in the next 24 hours then likely DC home tomorrow. Obesity, BMI 40: We will professor of counseling on lifestyle changes, risk factor for poor outcome with Covid DVT PPX: Lovenox Code status: Full Discharge Plan: Home Time Spent Managing Pts Care (In Minutes): 55
[2021-06-14] MEDS ORDERED: ACETAMINOPHEN 500 MG TAB ONE (06:09)
[2021-06-14 06:38] LABS: ALT/SGPT 53 U/L (12-78); AST/SGOT 32 U/L (15-37); Albumin 3.1 g/dL (3.4-5.0); Alkaline Phosphatase 86 U/L (45-117); BUN Blood Urea Nitrogen 9 mg/dL (7-18); Bicarbonate 26 mmol/L (21-32); Bilirubin Direct 0.2 mg/dL (0-0.2); Bilirubin Total 0.5 mg/dL (0.2-1.0); Glucose Level 177 mg/dL (74-106); Magnesium 1.9 mg/dL (1.8-2.4); NT PRO-BNP 175 pg/mL (<125); Potassium 3.4 mmol/L (3.5-5.1); Protein, Total 6.6 g/dL (6.4-8.2); Sodium Level 139 mmol/L (136-145); Troponin (Emerg Dept Use Only) < 0.02 ng/mL (0.0-0.045)
[2021-06-14 06:53] LABS: Ferritin 523.6 ng/mL (8-388)
[2021-06-14] MEDS: KCL 20 MEQ/100 mL IVPB 20 MEQ/100 ML BAG IV SCH ×2 (08:00→10:00)
--- NOTE | 2021-06-14 08:12 | RAD REPORT ---
EXAM DESCRIPTION: RAD - Chest Single View - 06/14/2021 3:52 am CLINICAL HISTORY: COUGH COMPARISON: June 11 TECHNIQUE: AP portable chest image was obtained 06/14/2021 3:52 am . FINDINGS: Exam is substantially limited due to large body habitus, portable lordotic position examin ation and under penetrated technique. The very low lung volumes accentuate interstitial markings easily masking edema or infiltrate. Patchy airspace disease could also be potentially masked. Heart and vasculature are normal. No measurable pleural effusion and no pneumothorax. No acute bony abnormality seen. No acute aortic findings suspected. IMPRESSION: Very limited portable study showing interstitial and alveolar opacities. The lung parenc hymal findings may all simply represent atelectasis from low lung volumes and under penetrated film t echnique. Interstitial edema or infiltrate are easily masked and mild alveolar edema or infiltrate could be mas ked.
[2021-06-14] MEDS: THIAMINE HCL 100 MG TABLET PO SCH (09:00)
[2021-06-14] MEDS: ASPIRIN EC 81 MG TAB PO SCH (09:00)
[2021-06-14] MEDS: ASCORBIC ACID 500 MG TABLET PO SCH ×4 (09:00→21:00)
[2021-06-14] MEDS ORDERED: ENOXAPARIN 40 MG/0.4 ML SQ SCH (09:00)
[2021-06-14] MEDS: METHYLPREDNISOLONE 40 MG INJ IV SCH ×3 (09:00→21:00)
[2021-06-14] MEDS: ZINC SULFATE 220 MG CAP PO SCH (09:00)
[2021-06-14] MEDS: VITAMIN D 1000 UNIT TAB PO SCH (09:00)
[2021-06-14] MEDS: IVERMECTIN 3 MG TABLET PO SCH (09:00)
[2021-06-14] MEDS ORDERED: THIAMINE HCL 100 MG TABLET ONE (10:34)
[2021-06-14] MEDS ORDERED: ASPIRIN EC 81 MG TAB PO ONE (10:34)
[2021-06-14] MEDS ORDERED: ZINC SULFATE 220 MG CAP ONE (10:34)
[2021-06-14] MEDS ORDERED: VITAMIN D 1000 UNIT TAB ONE (10:35)
[2021-06-14] MEDS ORDERED: ASCORBIC ACID 500 MG TABLET ONE ×3 (10:35→21:34)
[2021-06-14] MEDS ORDERED: METHYLPREDNISOLONE 40 MG INJ ONE ×2 (10:35→21:34)
[2021-06-14] MEDS ORDERED: POTASSIUM CL SA 10 MEQ TAB PO ONE (10:35)
[2021-06-14] MEDS ORDERED: ENOXAPARIN 40 MG/0.4 ML SQ ONE (10:36)
--- NOTE | 2021-06-14 10:50 | P.CNS ---
Date of Consult: 06/14/21 Reason for Consult: RENATO talavera Primary Care Provider: None Chief Complaint: COVID-19 pneumonia History of Present Illness: Age 56 AW COVID penumonia, Pos 06/08/ Stable Allergies No Known Allergies Allergy (Unverified 06/14/21 05:07) Home Medications: predniSONE [Prednisone] 20 mg PO BID 06/14/21 - Past Medical/Surgical History -: None -: Partial hysterectomy Psychosocial/ Personal History: Patient has a significant other. - Social History Smoking Status: Never smoker Alcohol use: No CD- Drugs: No Caffeine use: No Place of Residence: Home Review of Systems General: Weakness Respiratory: Shortness of Breath Physical Examination Temp Pulse Resp BP Pulse Ox 100.2 F 06/14/21 06:45 Laboratory Data (last 24 hrs) 06/14/21 04:03: PT 11.8, INR 1.03 06/14/21 04:03: Sodium 139, Potassium 3.4 L, BUN 9, Creatinine 0.74, Glucose 177 H, Magnesium 1.9, Total Bilirubin 0.5, AST 32, ALT 53, Alkaline Phosphatase 86 06/14/21 04:03: WBC 9.00 D, Hgb 14.2, Hct 40.7, Plt Count 153 D - Problems (1) COVID Current Visit: Yes Status: Acute Plan: age 56 AW COVID penumonia/ Labs reviewed/ on 2 l ncan. Does not qualify for barcitinib/ labs reviewed. CXRY OBesity with ILD/ O2 ordered/poss DC home am
[2021-06-14] MEDS: RIVAROXABAN 15 MG TABLET PO SCH (17:00)
[2021-06-15 04:55] LABS: Absolute Lymphocytes (CBC) 0.8 K/uL (0.7-4.9); Basophils % 0.2 % (0-1.3); Hematocrit 39.5 % (36.0-45.0); Lymphocytes % 9.6 % (15.3-44.8); MPV 8.4 fL (7.6-11.3)
[2021-06-15 05:31] LABS: Bilirubin Total 0.4 mg/dL (0.2-1.0); C-Reactive Protein 61.8 mg/L (<3.00); Ferritin 608.1 ng/mL (8-388); Magnesium 2.5 mg/dL (1.8-2.4); Potassium 3.9 mmol/L (3.5-5.1); Protein, Total 6.7 g/dL (6.4-8.2); Thyroid Stimulating Hormone 0.44 uIU/mL (0.360-3.740)
--- NOTE | 2021-06-15 06:04 | P.DS ---
Admission Date: 06/14/21 Discharge Date: 06/15/21 Primary Care Provider: None Disposition: ROUTINE DISCHARGE Discharge Condition: GOOD Reason for Admission: COVID-19 pneumonia Consultations: Pulmonary-Dr. Villasenor Procedures: Medical problem list: Acute hypoxic respiratory failure secondary to COVID-19 pneumonia, unvaccinated, failed outpatient therapy Obesity, BMI 40 Brief History of Present Illness: 56-year-old otherwise healthy female presents emergency department for shortness of breath and cough. Patient reports testing positive for Covid on 06/08/2021 with progressive shortness of breath. Boyfriend also sick with Covid, currently hospitalized. Upon arrival to the emergency department patient saturating around 88% on room air with tachypnea, dyspnea. Patient was placed on nasal cannula and given IV steroids in the emergency department, ED provider wishes to admit for further evaluation and management. Hospital Course: Plan: Acute hypoxic respiratory failure secondary to COVID-19 pneumonia, unvaccinated, failed outpatient therapy: Patient nonvaccinated, patient recently seen in the emergency department had CT PE protocol which was negative for pulmonary embolism, chest x-ray worse in comparison today. Currently on 2 l/min. No distress noted. Will continue with IV steroid, ivermectin, and supplementation. Encourage proning, incentive spirometer. Will need home oxygen. If stable in the next 24 hours then likely DC home tomorrow. Obesity, BMI 40: We will business and financial counsel on lifestyle changes, risk factor for poor outcome with Covid DVT PPX: Lovenox Code status: Full Discharge Plan: Home Time Spent Managing Pts Care (In Minutes): 55 Vital Signs/Physical Exam: Temp Pulse Resp BP Pulse Ox 98.5 F 72 24 H 133/80 91 06/15/21 04:00 06/15/21 04:00 06/15/21 04:00 06/15/21 04:00 06/15/21 04:00 Laboratory Data at Discharge: WBC 8.70 K/uL (4.3-10.9) 06/15/21 04:48 Hgb 13.6 g/dL (12.0-15.0) 06/15/21 04:48 Hct 39.5 % (36.0-45.0) 06/15/21 04:48 Plt Count 143 K/uL (152-406) L 06/15/21 04:48 PT 11.8 SECONDS (9.5-12.5) 06/14/21 04:03 INR 1.03 06/14/21 04:03 Sodium 140 mmol/L (136-145) 06/15/21 04:48 Potassium 3.9 mmol/L (3.5-5.1) 06/15/21 04:48 BUN 15 mg/dL (7-18) 06/15/21 04:48 Creatinine 0.71 mg/dL (0.55-1.3) 06/15/21 04:48 Glucose 215 mg/dL (74-106) H 06/15/21 04:48 Magnesium 2.5 mg/dL (1.8-2.4) H D 06/15/21 04:48 Total Bilirubin 0.4 mg/dL (0.2-1.0) 06/15/21 04:48 AST 24 U/L (15-37) 06/15/21 04:48 ALT 49 U/L (12-78) 06/15/21 04:48 Alkaline Phosphatase 83 U/L (45-117) 06/15/21 04:48 Triglycerides 117 mg/dL (<150) 06/15/21 04:48 Cholesterol 148 mg/dL (<200) 06/15/21 04:48 HDL Cholesterol 45 mg/dL (40-60) 06/15/21 04:48 Cholesterol/HDL Ratio 3.29 06/15/21 04:48 Home Medications: predniSONE [Prednisone] 20 mg PO BID 06/14/21 Followup: NONE,NONE [Primary Care Provider] -
--- NOTE | 2021-06-15 06:21 | P.PN ---
Subjective Date of Service: 06/15/21 Primary Care Provider: None Chief Complaint: COVID-19 pneumonia Subjective: Other (Still with some SOB with exertion with desaturations. She is stable on 3 L/m) Physical Examination - Vital Signs Temperature: 98.5 F Blood Pressure: 133/80 Pulse: 72 Respirations: 24 Pulse Ox (%): 91 - Studies Laboratory Data (last 24 hrs) 06/14/21 04:03: Sodium 139, Potassium 3.4 L, BUN 9, Creatinine 0.74, Glucose 177 H, Magnesium 1.9, Total Bilirubin 0.5, AST 32, ALT 53, Alkaline Phosphatase 86 Assessment & Plan Discharge Plan: Home Plan to discharge in: 48 Hours Physician Review Additional Text: Physical exam: General: Alert, In no apparent distress, Oriented x3 HEENT: Atraumatic, PERRLA, Mucous membr. moist/pink Neck: Supple, 2+ carotid pulse no bruit, No LAD Respiratory: Normal air movement. No distress. currently on 2 l/m Cardiovascular: Regular rate/rhythm, Normal S1 S2 Capillary refill: <2 Seconds Gastrointestinal: Normal bowel sounds, No tenderness Musculoskeletal: No tenderness Integumentary: No rashes Neurological: Normal gait, Normal speech, Normal strength at 5/5 x4 extr, Normal tone, Normal affect Lymphatics: No axilla or inguinal lymphadenopathy Impression: Acute hypoxic respiratory failure secondary to COVID-19 pneumonia, unvaccinated, failed outpatient therapy Obesity, BMI 40 Plan: Acute hypoxic respiratory failure secondary to COVID-19 pneumonia, unvaccinated, failed outpatient therapy: Patient nonvaccinated, patient recently seen in the emergency department had CT PE protocol which was negative for pulmonary embolism. Ferritin and CRP increased. Currently on 3 L/m. Still with some desats with exertion. Will continue with IV steroid, ivermectin, and supplementation. Encourage proning, incentive spirometer. Will discuss with Pulmonary about starting Baricinitib. COntinue to monitor closely. Anticipate home in 48 hours. Obesity, BMI 40: Continue with Lifestyle modifications. DVT PPX: Lovenox Code status: Full Discharge Plan: Home Time Spent Managing Pts Care (In Minutes): 55
[2021-06-15] MEDS ORDERED: BARICITINIB 2 MG TABLET PO SCH (07:00)
[2021-06-15] MEDS ORDERED: POTASSIUM CL SA 10 MEQ TAB PO ONE (09:24)
[2021-06-15] MEDS: ASCORBIC ACID 500 MG TABLET PO SCH ×4 (09:54→20:12)
[2021-06-15] MEDS: ZINC SULFATE 220 MG CAP PO SCH (09:54)
[2021-06-15] MEDS: THIAMINE HCL 100 MG TABLET PO SCH (09:54)
[2021-06-15] MEDS: VITAMIN D 1000 UNIT TAB PO SCH (09:54)
[2021-06-15] MEDS: METHYLPREDNISOLONE 40 MG INJ IV SCH ×3 (09:55→20:12)
[2021-06-15] MEDS: ASPIRIN EC 81 MG TAB PO SCH (09:58)
--- NOTE | 2021-06-15 10:40 | P.PN ---
Subjective Date of Service: 06/15/21 (TV) Primary Care Provider: None Chief Complaint: COVID-19 pneumonia Subjective: Improving (Stable/on NCAN O2) Review of Systems Respiratory: Shortness of Breath Physical Examination - Vital Signs Temperature: 99.7 F Blood Pressure: 144/93 Pulse: 97 Respirations: 24 Pulse Ox (%): 90 Assessment & Plan - Problems (Diagnosis) (1) COVID Current Visit: Yes Status: Acute Plan: Improving/monitor for one more day/ Ambulate/ poss DC hoem am/ labs reviewed
[2021-06-15 12:02] LABS: Urine Appearance CLOUDY (Clear); Urine Bilirubin NEGATIVE (Negative); Urine Blood NEGATIVE (Negative); Urine Color YELLOW (Yellow); Urine Glucose NEGATIVE (Negative); Urine Microscopic Reflex ORDER UMIC; Urine Protein TRACE (Negative); Urine Specific Gravity 1.025 (1.005-1.030); Urine Urobilinogen 0.2 mg/dL (0.2-1.0); Urine pH 6.5 (5.0-7.0)
[2021-06-15 12:38] LABS: Urine Amorphous Sediment TRACE /HPF (NONE SEEN); Urine Bacteria 20-50 /HPF (<20); Urine RBC NONE SEEN /HPF (NONE SEEN)
[2021-06-15] MEDS: RIVAROXABAN 15 MG TABLET PO SCH (16:32)
[2021-06-16 05:16] LABS: Absolute Lymphocytes (CBC) 0.8 K/uL (0.7-4.9); Basophils % 0.2 % (0-1.3); Hematocrit 39.7 % (36.0-45.0); Lymphocytes % 6.1 % (15.3-44.8); MPV 8.2 fL (7.6-11.3)
[2021-06-16 06:08] LABS: ALT/SGPT 46 U/L (12-78); AST/SGOT 25 U/L (15-37); Albumin 2.8 g/dL (3.4-5.0); Alkaline Phosphatase 76 U/L (45-117); BUN Blood Urea Nitrogen 20 mg/dL (7-18); Bicarbonate 29 mmol/L (21-32); Glucose Level 226 mg/dL (74-106); Magnesium 2.4 mg/dL (1.8-2.4); Protein, Total 6.3 g/dL (6.4-8.2); Sodium Level 141 mmol/L (136-145)
[2021-06-16 06:27] LABS: Bilirubin Total 0.5 mg/dL (0.2-1.0); Ferritin 640.8 ng/mL (8-388)
[2021-06-16] MEDS: ASCORBIC ACID 500 MG TABLET PO SCH ×4 (07:32→21:04)
[2021-06-16] MEDS: THIAMINE HCL 100 MG TABLET PO SCH (07:32)
[2021-06-16] MEDS: IVERMECTIN 3 MG TABLET PO SCH (07:33)
[2021-06-16] MEDS: VITAMIN D 1000 UNIT TAB PO SCH (07:33)
[2021-06-16] MEDS: ZINC SULFATE 220 MG CAP PO SCH (07:33)
[2021-06-16] MEDS: METHYLPREDNISOLONE 40 MG INJ IV SCH ×3 (07:33→21:03)
[2021-06-16] MEDS: ASPIRIN EC 81 MG TAB PO SCH (07:33)
[2021-06-16 10:30] LABS: Platelet Estimate ADEQ
[2021-06-16 10:31] LABS: Blood Morphology Comment NOT SEEN (NOT SEEN)
--- NOTE | 2021-06-16 10:37 | P.PN ---
Subjective Date of Service: 06/16/21 Primary Care Provider: None Chief Complaint: COVID-19 pneumonia Subjective: Improving (Patient reports improvement. Currently on 2 to 3 L but this was increased after ambulation this morning) Physical Examination - Vital Signs Temperature: 97.3 F Blood Pressure: 138/79 Pulse: 87 Respirations: 26 Pulse Ox (%): 91 Assessment & Plan Discharge Plan: Home Plan to discharge in: 48 Hours Physician Review Additional Text: Physical exam: General: Alert, In no apparent distress, Oriented x3 HEENT: Atraumatic, PERRLA, Mucous membr. moist/pink Neck: Supple, 2+ carotid pulse no bruit, No LAD Respiratory: Normal air movement. No distress. currently on 3 L per nasal cannula Cardiovascular: Regular rate/rhythm, Normal S1 S2 Capillary refill: <2 Seconds Gastrointestinal: Normal bowel sounds, No tenderness Musculoskeletal: No tenderness Integumentary: No rashes Neurological: Normal gait, Normal speech, Normal strength at 5/5 x4 extr, Normal tone, Normal affect Lymphatics: No axilla or inguinal lymphadenopathy Impression: Acute hypoxic respiratory failure secondary to COVID-19 pneumonia, unvaccinated, failed outpatient therapy, unvaccinated Obesity, BMI 40 Plan: Acute hypoxic respiratory failure secondary to COVID-19 pneumonia, unvaccinated, failed outpatient therapy, unvaccinated: Patient continues to improve. Patient was ambulated this morning. Some desaturations noted. But stable. Still not ready to be discharged today. Continue IV steroid, ivermectin and supplementation. Consider baricitinib if her condition worsens. Discussed with pulmonology. Patient transition to Xarelto for DVT prophylaxis. Encourage proning, incentive spirometer. Continue to wean off oxygen. I will turn the service over to the hospitalist team tomorrow. I will go plan of care with him. Possible discharge within the next 48 hours if improvement noted Obesity, BMI 40: Continue with Lifestyle modifications. DVT PPX: Xarelto Code status: Full Discharge Plan: Home with home oxygen likely in 48 hours Time Spent Managing Pts Care (In Minutes): 55
[2021-06-16] MEDS ORDERED: FUROSEMIDE 20 MG/ 2ML VIAL IV ONE (15:16)
--- NOTE | 2021-06-16 15:17 | P.PN ---
Subjective Date of Service: 06/16/21 (TV) Primary Care Provider: None Chief Complaint: COVID-19 pneumonia Subjective: Improving (Doign much better) Review of Systems General: Weakness Respiratory: Shortness of Breath Physical Examination - Vital Signs Temperature: 97.3 F Blood Pressure: 135/81 Pulse: 101 Respirations: 24 Pulse Ox (%): 91 Assessment & Plan - Problems (Diagnosis) (1) COVID Current Visit: Yes Status: Acute Plan: Much better. on NC O2/ poss Dc Am
[2021-06-16] MEDS: RIVAROXABAN 15 MG TABLET PO SCH (16:27)
[2021-06-16] MEDS: BENZONATATE 100 MG CAP PO PRN (21:10)
[2021-06-17] MEDS ORDERED: FAMOTIDINE 20 MG/2 ML VIAL IV ONE (03:33)
[2021-06-17 06:23] LABS: Absolute Lymphocytes (CBC) 0.7 K/uL (0.7-4.9); Hematocrit 38.6 % (36.0-45.0); Lymphocytes % 5.3 % (15.3-44.8); MPV 8.1 fL (7.6-11.3)
[2021-06-17 06:31] LABS: Potassium 3.7 mmol/L (3.5-5.1)
[2021-06-17 06:58] LABS: Albumin 2.7 g/dL (3.4-5.0); Bilirubin Total 0.5 mg/dL (0.2-1.0); C-Reactive Protein 40.7 mg/L (<3.00); Ferritin 839.9 ng/mL (8-388); Magnesium 2.6 mg/dL (1.8-2.4); Protein, Total 6.4 g/dL (6.4-8.2)
[2021-06-17] MEDS: THIAMINE HCL 100 MG TABLET PO SCH (08:41)
[2021-06-17] MEDS: ZINC SULFATE 220 MG CAP PO SCH (08:41)
[2021-06-17] MEDS: ASPIRIN EC 81 MG TAB PO SCH (08:41)
[2021-06-17] MEDS: METHYLPREDNISOLONE 40 MG INJ IV SCH ×3 (08:41→20:44)
[2021-06-17] MEDS: VITAMIN D 1000 UNIT TAB PO SCH (08:41)
[2021-06-17] MEDS: ASCORBIC ACID 500 MG TABLET PO SCH ×4 (08:42→20:45)
[2021-06-17] MEDS ORDERED: POTASSIUM CL SA 10 MEQ TAB PO ONE (09:00)
[2021-06-17 09:41] LABS: Blood Morphology Comment NOT SEEN (NOT SEEN); Platelet Estimate ADEQ; White Blood Cell Scan OK (OK)
--- NOTE | 2021-06-17 12:22 | RAD REPORT ---
EXAM DESCRIPTION: RAD - Chest Single View - 06/17/2021 5:58 am CLINICAL HISTORY: Follow-up Covid Chest pain. COMPARISON: Chest Single View dated 06/14/2021; Chest Single View dated 06/11/2021 FINDINGS: Portable technique limits examination quality. Bilateral pulmonary opacities appear slightly worse on the right compared to prior study. The heart i s mildly prominent in size. No displaced fractures. IMPRESSION: Mild worsening in right lung aeration is noted.
[2021-06-17] MEDS: RIVAROXABAN 15 MG TABLET PO SCH (17:42)
[2021-06-17] MEDS: BENZONATATE 100 MG CAP PO PRN (20:51)
[2021-06-18] MEDS: ZINC SULFATE 220 MG CAP PO SCH (09:49)
[2021-06-18] MEDS: ASCORBIC ACID 500 MG TABLET PO SCH ×4 (09:49→19:50)
[2021-06-18] MEDS: VITAMIN D 1000 UNIT TAB PO SCH (09:49)
[2021-06-18] MEDS: ASPIRIN EC 81 MG TAB PO SCH (09:49)
[2021-06-18] MEDS: THIAMINE HCL 100 MG TABLET PO SCH (09:50)
[2021-06-18] MEDS: METHYLPREDNISOLONE 40 MG INJ IV SCH ×3 (09:50→19:50)
--- NOTE | 2021-06-18 10:21 | P.PN ---
Subjective Date of Service: 06/17/21 Subjective: No new changes, No C/O voiced Patient does appear to be a little anxious today. Patient appears to be tachypneic on movement. She is only on 4-5 L of oxygen and will continue to monitor closely. Review of Systems 10-point ROS is otherwise unremarkable Physical Examination - Vital Signs Temperature: 97.3 F Blood Pressure: 120/74 Pulse: 83 Respirations: 27 Pulse Ox (%): 87 - Physical Exam General: Alert, In no apparent distress, Oriented x3 Respiratory: Clear to auscultation bilaterally, Normal air movement Cardiovascular: Regular rate/rhythm, Normal S1 S2, No murmurs Gastrointestinal: Normal bowel sounds, Soft and benign, Non-distended, No tenderness Musculoskeletal: No clubbing, No swelling, No tenderness Neurological: Sensation intact, Cranial nerves 3-12 intact - Studies Medications List Reviewed: Yes Assessment & Plan - Problems (Diagnosis) (1) Pneumonia due to COVID-19 virus Current Visit: Yes Status: Acute - Plan 1. Continue with IV steroids 2. Monitor inflammatory markers 3. Repeat chest x-ray shows some worsening of the pneumonia. Patient with significant inflammation throughout both lung aldrich 4. O2 per protocol 5. Pulmonary consultation appreciated 6. Continue with albuterol inhaler therapy; also supportive care 7. Monitor LFTs 8. GI and DVT prophylaxis Discharge Plan: Home Plan to discharge in: Greater than 2 days - Advance Directives Does patient have a Living Will: No Does patient have a Durable POA for Healthcare: No
--- NOTE | 2021-06-18 10:22 | P.PN ---
Date of Service: 06/18/21 Subjective Patient received neb treatments and is currently feeling much better. At this time will continue with current plan of care. Continue with steroids and nebulizer treatments. Review of Systems 10-point ROS is otherwise unremarkable Physical Examination - Vital Signs reviewed - Physical Exam General: Alert, In no apparent distress, Oriented x3 Respiratory: Clear to auscultation bilaterally, Normal air movement Cardiovascular: Regular rate/rhythm, Normal S1 S2, No murmurs Gastrointestinal: Normal bowel sounds, Soft and benign, Non-distended, No tenderness Musculoskeletal: No clubbing, No swelling, No tenderness Neurological: Sensation intact, Cranial nerves 3-12 intact Assessment & Plan - Problems (Diagnosis) (1) Pneumonia due to COVID-19 virus Current Visit: Yes Status: Acute - Plan Continue with plan of care as mentioned below: 1. Continue with IV steroids 2. Monitor inflammatory markers 3. Continue neb treatments as needed 4. O2 per protocol 5. Pulmonary consultation appreciated 6. Out of bed and ambulate 7. GI and DVT prophylaxis
[2021-06-18] MEDS: ALBUTEROL 2.5 MG/3 ML NEB SOL NEB PRN (10:50)
[2021-06-18] MEDS: IPRATROPIUM BROM 0.5MG/2.5ML NEB PRN (10:50)
[2021-06-18] MEDS: RIVAROXABAN 15 MG TABLET PO SCH (16:58)
--- NOTE | 2021-06-18 17:14 | P.PN ---
Subjective Date of Service: 06/18/21 Primary Care Provider: None Chief Complaint: COVID-19 pneumonia Subjective: Improving (Feeling better still requiring high concentration of FIo2/) Review of Systems Respiratory: Shortness of Breath Physical Examination - Vital Signs Temperature: 97.1 F Blood Pressure: 126/71 Pulse: 86 Respirations: 19 Pulse Ox (%): 91 - Studies Medications List Reviewed: Yes Assessment & Plan - Problems (Diagnosis) (1) COVID Current Visit: Yes Status: Acute Plan: Resp failure, Improving Still exp desat/ Trial fo BIPAP/ NC in meds
[2021-06-19] MEDS: METHYLPREDNISOLONE 40 MG INJ IV SCH (09:00)
[2021-06-19] MEDS: THIAMINE HCL 100 MG TABLET PO SCH (10:01)
[2021-06-19] MEDS: ASPIRIN EC 81 MG TAB PO SCH (10:01)
[2021-06-19] MEDS: VITAMIN D 1000 UNIT TAB PO SCH (10:01)
[2021-06-19] MEDS: METHYLPREDNISOLONE 125 MG INJ IV SCH ×3 (10:02→20:44)
[2021-06-19] MEDS: ZINC SULFATE 220 MG CAP PO SCH (10:02)
[2021-06-19] MEDS: ASCORBIC ACID 500 MG TABLET PO SCH ×4 (10:02→20:59)
[2021-06-19 11:13] LABS: Arterial Blood Carboxyhemoglob 0.8 % (0-1.5); Blood Gas Oxyhemoglobin 89.1 % (94-97); Blood O2 Saturation 90.8 % (92-98.5)
[2021-06-19] MEDS ORDERED: METHYLPREDNISOLONE 125 MG INJ IV SCH (14:00)
--- NOTE | 2021-06-19 16:44 | P.PN ---
Subjective Date of Service: 06/19/21 Primary Care Provider: None Chief Complaint: COVID-19 pneumonia Nc Still remains very hypoxic/ Review of Systems Respiratory: Shortness of Breath Physical Examination - Vital Signs Temperature: 97.7 F Blood Pressure: 121/85 Pulse: 84 Respirations: 25 Pulse Ox (%): 92 - Physical Exam General: Alert, Cooperative - Studies Medications List Reviewed: Yes Assessment & Plan - Problems (Diagnosis) (1) COVID Current Visit: Yes Status: Acute Plan: Resp failure refused BIPAP/ ABG O2 sat on 6 l/min/ Poss DC am/labs reviewed
[2021-06-19] MEDS: RIVAROXABAN 15 MG TABLET PO SCH (17:10)
--- NOTE | 2021-06-19 18:18 | P.PN ---
Date of Service: 06/19/21 Subjective Patient improving quite rapidly. Arrange for home oxygen in a.m.. Anticipate discharge in the morning Review of Systems 10-point ROS is otherwise unremarkable Physical Examination - Vital Signs reviewed - Physical Exam General: Alert, In no apparent distress, Oriented x3 Respiratory: Diminished but otherwise clear Cardiovascular: Regular rate/rhythm, Normal S1 S2, No murmurs Gastrointestinal: Normal bowel sounds, Soft and benign, Non-distended, No tenderness Musculoskeletal: No clubbing, No swelling, No tenderness Neurological: Sensation intact, Cranial nerves 3-12 intact Assessment & Plan - Problems (Diagnosis) (1) Pneumonia due to COVID-19 virus Current Visit: Yes Status: Acute - Plan Continue with plan of care as mentioned below: 1. Continue with IV steroids 2. Monitor inflammatory markers 3. Continue neb treatments as needed 4. O2 per protocol 5. Pulmonary consultation appreciated 6. Out of bed and ambulate 7. GI and DVT prophylaxis
[2021-06-20 05:54] LABS: Absolute Lymphocytes (CBC) 0.5 K/uL (0.7-4.9); Basophils % 0.2 % (0-1.3); Hematocrit 38.2 % (36.0-45.0); Lymphocytes % 5.7 % (15.3-44.8); MPV 8.4 fL (7.6-11.3); RBC Red Blood Cell Count 4.34 M/uL (3.86-4.86)
[2021-06-20 06:15] LABS: Magnesium 2.7 mg/dL (1.8-2.4); Phosphorus 4.3 mg/dL (2.5-4.9); Potassium 4.3 mmol/L (3.5-5.1)
[2021-06-20] MEDS: METHYLPREDNISOLONE 125 MG INJ IV SCH ×3 (09:04→20:36)
[2021-06-20] MEDS: THIAMINE HCL 100 MG TABLET PO SCH (09:04)
[2021-06-20] MEDS: ZINC SULFATE 220 MG CAP PO SCH (09:04)
[2021-06-20] MEDS: VITAMIN D 1000 UNIT TAB PO SCH (09:04)
[2021-06-20] MEDS: ASPIRIN EC 81 MG TAB PO SCH (09:04)
[2021-06-20] MEDS: ASCORBIC ACID 500 MG TABLET PO SCH ×4 (09:04→20:36)
[2021-06-20 09:21] LABS: Arterial Blood Carboxyhemoglob 0.7 % (0-1.5); Blood O2 Saturation 84.3 % (92-98.5)
[2021-06-20] MEDS ORDERED: [UNRECOGNIZED DRUG - OTHER] IVPB ONE (09:46)
[2021-06-20] MEDS: RIVAROXABAN 15 MG TABLET PO SCH (16:12)
--- NOTE | 2021-06-20 16:43 | P.PN ---
Subjective Date of Service: 06/20/21 Primary Care Provider: None Chief Complaint: COVID-19 pneumonia Still hypoxic, feeling better Review of Systems General: Weakness Respiratory: Shortness of Breath Physical Examination - Vital Signs Temperature: 97 F Blood Pressure: 148/94 Pulse: 108 Respirations: 26 Pulse Ox (%): 92 - Physical Exam General: Alert, In no apparent distress, Oriented x3 - Studies Medications List Reviewed: Yes Assessment & Plan - Problems (Diagnosis) (1) COVID Current Visit: Yes Status: Acute Plan: Severe hyoxemia/ LAbs reviewed/ NC in [place]
[2021-06-20] MEDS ORDERED: FUROSEMIDE 20 MG/ 2ML VIAL IV ONE (17:00)
[2021-06-20] MEDS: BENZONATATE 100 MG CAP PO PRN (20:37)
[2021-06-21 05:50] LABS: C-Reactive Protein 9.48 mg/L (<3.00); Potassium 4.2 mmol/L (3.5-5.1)
[2021-06-21 06:07] LABS: Ferritin 926.8 ng/mL (8-388)
--- NOTE | 2021-06-21 07:34 | P.PN ---
Date of Service: 06/20/21 Subjective Patient continues to do well. Oxygen saturations are in the low 90s at 5 L. Decreased to 4 L and hopefully we can discharge home Review of Systems 10-point ROS is otherwise unremarkable Physical Examination - Vital Signs reviewed - Physical Exam General: Alert, In no apparent distress, Oriented x3 Respiratory: Diminished but otherwise clear Cardiovascular: Regular rate/rhythm, Normal S1 S2, No murmurs Gastrointestinal: Normal bowel sounds, Soft and benign, Non-distended, No tenderness Musculoskeletal: No clubbing, No swelling, No tenderness Neurological: Sensation intact, Cranial nerves 3-12 intact Assessment & Plan - Problems (Diagnosis) (1) Pneumonia due to COVID-19 virus Current Visit: Yes Status: Acute - Plan Continue with plan of care as mentioned below: 1. Start tapering her steroids down 2. Monitor lab data as needed 3. Continue neb treatments as needed 4. O2 per protocol 5. Pulmonary consultation appreciated 6. Out of bed and ambulate 7. GI and DVT prophylaxis
[2021-06-21] MEDS ORDERED: INSULIN 70/30 100 UNITS/ML SQ ONE ×3 (08:00→16:30)
[2021-06-21] MEDS: ASPIRIN EC 81 MG TAB PO SCH (08:32)
[2021-06-21] MEDS: VITAMIN D 1000 UNIT TAB PO SCH (08:32)
[2021-06-21] MEDS: ZINC SULFATE 220 MG CAP PO SCH (08:32)
[2021-06-21] MEDS: METHYLPREDNISOLONE 125 MG INJ IV SCH (08:32)
[2021-06-21] MEDS: ASCORBIC ACID 500 MG TABLET PO SCH ×4 (08:32→20:39)
[2021-06-21] MEDS: THIAMINE HCL 100 MG TABLET PO SCH (08:32)
[2021-06-21] MEDS: IPRATROPIUM BROM 0.5MG/2.5ML NEB PRN (10:00)
[2021-06-21] MEDS: ALBUTEROL 2.5 MG/3 ML NEB SOL NEB PRN (10:00)
[2021-06-21] MEDS ORDERED: GLUCAGON 1 MG/VIAL IM PRN (12:37)
[2021-06-21] MEDS ORDERED: D50W 25 GM/50 ML SYRINGE IV PRN (12:37)
[2021-06-21] MEDS ORDERED: NA CHLORIDE 0.9% 1,000 ML IV SCH (13:00)
[2021-06-21] MEDS: RIVAROXABAN 15 MG TABLET PO SCH (16:49)
[2021-06-21] MEDS ORDERED: INSULIN -REGULAR HUMAN 50 UNIT/0.5 ML ML IV ONE (19:00)
[2021-06-21] MEDS: predniSONE 20 MG TAB PO SCH (20:39)
[2021-06-21] MEDS: BENZONATATE 100 MG CAP PO PRN (20:39)
[2021-06-21] MEDS: INSULIN -REGULAR HUMAN 50 UNIT/0.5 ML ML SQ SCH (20:42)
--- NOTE | 2021-06-21 21:06 | P.PN ---
Subjective Date of Service: 06/21/21 Primary Care Provider: None Chief Complaint: COVID-19 pneumonia SFeeling better still hypoxic with desaturation with mild exertion Review of Systems General: Weakness Respiratory: Shortness of Breath Physical Examination - Vital Signs Temperature: 98.6 F Blood Pressure: 155/89 Pulse: 96 Respirations: 28 Pulse Ox (%): 91 - Physical Exam General: Alert, In no apparent distress, Oriented x3, Cooperative - Studies Medications List Reviewed: Yes Assessment & Plan - Problems (Diagnosis) (1) COVID Current Visit: Yes Status: Acute Plan: Subjective improvement/ On4 l/min poss D/c 1-2 days/ BS elevated
[2021-06-21] MEDS ORDERED: FUROSEMIDE 20 MG/ 2ML VIAL IV ONE (21:11)
[2021-06-22 05:11] LABS: BUN Blood Urea Nitrogen 30 mg/dL (7-18); Bicarbonate 30 mmol/L (21-32); C-Reactive Protein 7.18 mg/L (<3.00); Ferritin 1034.3 ng/mL (8-388); Glucose Level 201 mg/dL (74-106); Sodium Level 143 mmol/L (136-145)
[2021-06-22 05:21] VITALS: BMI 47.2
[2021-06-22] MEDS: INSULIN -REGULAR HUMAN 50 UNIT/0.5 ML ML SQ SCH ×2 (08:14→11:44)
[2021-06-22] MEDS: ASCORBIC ACID 500 MG TABLET PO SCH ×2 (08:15→13:11)
[2021-06-22] MEDS: ZINC SULFATE 220 MG CAP PO SCH (08:15)
[2021-06-22] MEDS: THIAMINE HCL 100 MG TABLET PO SCH (08:15)
[2021-06-22] MEDS: predniSONE 20 MG TAB PO SCH (08:15)
[2021-06-22] MEDS: ASPIRIN EC 81 MG TAB PO SCH (08:15)
[2021-06-22] MEDS: VITAMIN D 1000 UNIT TAB PO SCH (08:15)
[2021-06-22 10:20] VITALS: BP 112/78; TEMP 96.9
[2021-06-22 12:15] VITALS: O2SAT 92
--- NOTE | 2021-06-27 21:20 | P.PN ---
Date of Service: 06/21/21 Subjective Patient is doing well; Patient denies any new complaints. Clinically doing much better. Anticipate discharge home in the morning Review of Systems 10-point ROS is otherwise unremarkable Physical Examination - Vital Signs reviewed - Physical Exam General: Alert, In no apparent distress, Oriented x3 Respiratory: Diminished but otherwise clear Cardiovascular: Regular rate/rhythm, Normal S1 S2, No murmurs Gastrointestinal: Normal bowel sounds, Soft and benign, Non-distended, No tenderness Musculoskeletal: No clubbing, No swelling, No tenderness Neurological: Sensation intact, Cranial nerves 3-12 intact Assessment & Plan - Problems (Diagnosis) (1) Pneumonia due to COVID-19 virus Current Visit: Yes Status: Acute - Plan Continue with plan of care as mentioned below: 1. Tapering her steroids down 2. Monitor lab data as needed 3. Continue neb treatments as needed 4. O2 per protocol 5. Pulmonary consultation appreciated 6. Out of bed and ambulate 7. GI and DVT prophylaxis
--- NOTE | 2021-06-27 21:24 | P.DS ---
Discharge Date: 06/22/21 Primary Care Provider: Charli Disposition: ROUTINE DISCHARGE Discharge Condition: GOOD Reason for Admission: COVID-19 pneumonia - Problems (1) Pneumonia due to COVID-19 virus Status: Acute Brief History of Present Illness: Patient 56-year-old otherwise healthy female presents emergency department for shortness of breath and cough. Patient reports testing positive for Covid on 06/08/2021 with progressive shortness of breath. Boyfriend also sick with Covid, currently hospitalized. Upon arrival to the emergency department patient saturating around 88% on room air with tachypnea, dyspnea. Patient was placed on nasal cannula and given IV steroids in the emergency department, ED provider wishes to admit for further evaluation and management. Hospital Course: Patient is doing well. Continue with steroids and nebulizer, patient O2 sats are stable. Patient is stable for discharge. Patient will follow up with Pulmonary in 1-2 weeks. Vital Signs/Physical Exam: Temp Pulse Resp BP Pulse Ox 96.9 F 88 21 H 112/78 91 06/22/21 08:00 06/22/21 08:00 06/22/21 08:00 06/22/21 08:00 06/22/21 08:00 General: Alert, In no apparent distress, Oriented x3 Laboratory Data at Discharge: WBC 9.00 K/uL (4.3-10.9) D 06/20/21 05:36 Hgb 13.1 g/dL (12.0-15.0) 06/20/21 05:36 Hct 38.2 % (36.0-45.0) 06/20/21 05:36 Plt Count 210 K/uL (152-406) 06/20/21 05:36 PT 11.8 SECONDS (9.5-12.5) 06/14/21 04:03 INR 1.03 06/14/21 04:03 Sodium 143 mmol/L (136-145) 06/22/21 04:41 Potassium 4.0 mmol/L (3.5-5.1) 06/22/21 04:41 BUN 30 mg/dL (7-18) H 06/22/21 04:41 Creatinine 0.67 mg/dL (0.55-1.3) 06/22/21 04:41 Glucose 201 mg/dL (74-106) H 06/22/21 04:41 Phosphorus 4.3 mg/dL (2.5-4.9) 06/20/21 05:36 Magnesium 2.7 mg/dL (1.8-2.4) H 06/20/21 05:36 Total Bilirubin 0.5 mg/dL (0.2-1.0) 06/17/21 05:57 AST 22 U/L (15-37) 06/17/21 05:57 ALT 46 U/L (12-78) 06/17/21 05:57 Alkaline Phosphatase 84 U/L (45-117) 06/17/21 05:57 Triglycerides 117 mg/dL (<150) 06/15/21 04:48 Cholesterol 148 mg/dL (<200) 06/15/21 04:48 HDL Cholesterol 45 mg/dL (40-60) 06/15/21 04:48 Cholesterol/HDL Ratio 3.29 06/15/21 04:48 Home Medications: Albuterol Neb [Proventil 0.083% Neb Soln] 2.5 mg NEB [id number] PRN #60 amp 06/21/21 Ascorbic Acid [Vitamin C*] 500 mg PO QID #120 tablet 06/21/21 Benzonatate [Tessalon Perle*] 100 mg PO TID PRN #30 cap 06/21/21 Cholecalciferol (Vitamin D3) [Vitamin D 1000 Iu Tab*] 4,000 unit PO DAILY #30 tab 06/21/21 Ipratropium Neb [Atrovent*] 0.5 mg NEB [id number] PRN #60 amp 06/21/21 Melatonin 5 mg PO BEDTIME PRN PRN #20 tablet 06/21/21 Nebulizer Accessories [Aeroneb Go] 1 each MC DAILY #1 each 06/21/21 Nebulizer [Aeroneb Go Nebulizer] 1 each MC DAILY #1 each 06/21/21 Rivaroxaban [Xarelto*] 15 mg PO DAILY AT SUPPER #14 tablet 06/21/21 Thiamine HCl [Vitamin B-1*] 200 mg PO DAILY #30 tablet 06/21/21 Zinc Sulfate [Zinc Sulfate*] 220 mg PO DAILY #30 cap 06/21/21 predniSONE [Prednisone] 20 mg PO BID #25 06/21/21 New Medications: Nebulizer Accessories [Aeroneb Go] 1 each MC DAILY #1 each Nebulizer [Aeroneb Go Nebulizer] 1 each MC DAILY #1 each Ipratropium Neb [Atrovent*] 0.5 mg NEB [id number] PRN #60 amp PRN Reason: Shortness Of Breath Melatonin 5 mg PO BEDTIME PRN PRN #20 tablet PRN Reason: Insomnia predniSONE [Prednisone] 20 mg PO BID #25 Albuterol Neb [Proventil 0.083% Neb Soln] 2.5 mg NEB [id number] PRN #60 amp PRN Reason: Shortness Of Breath Benzonatate [Tessalon Perle*] 100 mg PO TID PRN #30 cap PRN Reason: Cough Thiamine HCl [Vitamin B-1*] 200 mg PO DAILY #30 tablet Ascorbic Acid [Vitamin C*] 500 mg PO QID #120 tablet Cholecalciferol (Vitamin D3) [Vitamin D 1000 Iu Tab*] 4,000 unit PO DAILY #30 tab Rivaroxaban [Xarelto*] 15 mg PO DAILY AT SUPPER #14 tablet Zinc Sulfate [Zinc Sulfate*] 220 mg PO DAILY #30 cap Physician Discharge Instructions: OK TO DC IV AND DC HOME FOLLOW-UP WITH PRIMARY CARE PROVIDER IN 1-2 WEEKS FOLLOW-UP WITH Pulmonary IN 1-2 WEEKS RETURN TO THE ER IF symptoms worsen CALL or TEXT DR. AVITIA AT [phone] IF ANY QUESTIONS REGARDING HOSPITAL STAY. PLEASE CALL THE FLOOR AT [phone] IF ANY MEDICATION OR NURSING QUESTIONS. Diet: AHA Activity: Fall precautions Followup: Hola Villasenor MD [ACTIVE - CAN ADMIT] - 1-2 Weeks (fiber technologist- call to schedule an appointment ) NONE,NONE [Primary Care Provider] - Time spent managing pt's care (in minutes): 35
== END 2021-06-22 13:45 | disposition home or self-care (01) | DRG 177 ==
LOC: ER 03:08 → ERHOLD 04:17 → 3RD-ICU 06-15 08:37
PROVIDERS: ADMIT Family Medicine; ATTEND Family Medicine
PROC: 5A09357 Assistance with Respiratory Ventilation, Less than 24 Consecutive Hours, Continuous Positive Airway Pressure (ICD-10-PCS; principal; 2021-06-18)
DX: U07.1 COVID-19 (principal); J12.82 Pneumonia due to coronavirus disease 2019; J96.01 Acute respiratory failure with hypoxia; Z68.42 Body mass index [BMI] 45.0-49.9, adult; E66.9 Obesity, unspecified
CPT/HCPCS: 36415; 71045; 80048; 80053; 80061; 80076; 81003; 81015; 82728; 82805; 82947; 83036; 83735; 83880; 84100; 84145; 84439; 84443; 84484; 85025; 85379; 85610; 86140; 87086; 87088; 93005; 94002; 94003; 94010; 94640; 94760; 96374; 99285; J1650; J1815; J1940; J2920; J2930; J7030; J7512; J9306